=== PATIENT | female | born 1990 | race Two or more races ===

== ENCOUNTER 2017-02-21 11:00 | Emergency (ER) | payer OTHER ==
[~2017-02-21] VITALS: Ht 177.8 cm; Wt 55.6 kg
[~2017-02-21 11:00] MED LIST: PREDNISONE20 MG PO; PROVENTIL,2.5 MG/3 M IH; TESSALON PERLE100 MG PO
[2017-02-21 11:43] LABS: HEMATOCRIT 36.7 % (36.0-46.0); MCH 28.3 PG (29.0-34.0); MCHC 34.9 G/DL (30.0-36.0); RBC DIS.WIDTH-CV 12.8 % (11.8-14.6); RBC DIS.WIDTH-SD 37.5 % (39-53); RED BLOOD COUNT 4.53 M/uL (3.80-5.20); WHITE BLOOD COUNT 9.1 K/uL (4.1-10.2)
[2017-02-21 11:55] LABS: CHLORIDE 103 mEq/L (99-109); SODIUM 138 mEq/L (136-147)
[2017-02-21 11:57] LABS: GLUCOSE 99 mg/dL (70-99)
[2017-02-21 11:59] LABS: ANION GAP 11 MEQ/L (2-14); TOTAL BILIRUBIN 0.9 mg/dL (0.0-1.0)
[2017-02-21 12:01] LABS: ALKALINE PHOSPHATASE 63 IU/L (3-129); GFR ESTIMATE (CALCULATED) > 59 mL/min/
[2017-02-21 12:02] LABS: UREA NITROGEN (BUN) 9 mg/dL (9-23)
[2017-02-21 12:13] LABS: QUANTITATIVE HCG < 4.0 MIU/ML
[2017-02-21 12:19] LABS: ADD MIUA? YES; BILIRUBIN NEGATIVE; BLOOD NEGATIVE; COLOR YELLOW ((YELLOW)); GLUCOSE (STRIP) NEGATIVE; KETONES NEGATIVE; LEUKOCYTES TRACE; NITRITE NEGATIVE; PROTEIN (STRIP) 30; SPECIFIC GRAVITY 1.017 (1.000-1.030); UROBILINOGEN 0.2 MG/DL (0.2-1.0)
[2017-02-21 12:25] LABS: BACTERIA RARE /HPF; EPITHELIAL CELLS RARE /HPF; MUCUS TRACE /LPF; RED BLOOD CELLS 0-5 /HPF (0-5); UCUL ADDED? NO; WHITE BLOOD CELLS 0-5 /HPF (0-5)
[2017-02-21 12:40] VITALS: BP 103/68
[2017-02-21 12:51] LABS: PLAT.SUFFICIENCY ADEQUATE; PLATELET COUNT 228 K/uL (156-360)
== END 2017-02-21 15:11 | disposition home or self-care (01) ==
LOC: EME 11:00
DX: R10.33 Periumbilical pain (principal); K59.00 Constipation, unspecified; R11.2 Nausea with vomiting, unspecified; D57.1 Sickle-cell disease without crisis; F17.200 Nicotine dependence, unspecified, uncomplicated
CPT/HCPCS: 74022; 80053; 81003; 84702; 85027; 99281; 99285; J7030